=== PATIENT | female | born 1970 | race Caucasian/White ===

== ENCOUNTER → 2016-12-17 | Outpatient (CLI) | payer BC ==
--- NOTE | 2016-12-17 19:09 | DI ---
LEFT DIAGNOSTIC MAMMOGRAMS, 12/17/2016 1:18 PM: Clinical History: Breast cancer. Status post lumpectomy with radiation therapy. Prior Exam: 05/16/2014; 05/29/2015; left diagnostic mammogram 06/07/2015, left diagnostic mammogram 2015; 11/29/2015, and a left diagnostic mammogram 06/03/2016.. Digital breast imaging of the left breast is performed. Routine views and a true mediolateral project ion with magnification spot films are obtained in all three projections. Breast tissue density is rated as having scattered areas of fibroglandular breast tissue. There is po stsurgical scarring just deep to the nipple in the upper-outer quadrant near the 1:00 to 2:00 positio n. There is no mass in the left breast. No abnormal calcifications are noted. There is indentation of the skin at the surgical site at the skin contour is otherwise normal. Slight thickening of the trinh st skin tissue is present secondary to radiation therapy. The nipple is normal. Follow Up: A followup study is recommended in June when the patient will be due for her routine screening mammogram study. BIRADS Category: 2. Benign finding. Postsurgical scarring is noted anteriorly in the upper outer quad rant. No abnormal calcifications or masses are identified. Reading: Benign finding.
== END ==
LOC: MAMMO 13:15
PROVIDERS: ATTEND Physician Assistant
DX: D05.12 Intraductal carcinoma in situ of left breast (principal); Z92.3 Personal history of irradiation; Z98.890 Other specified postprocedural states
CPT/HCPCS: G0206

== ENCOUNTER → 2017-06-02 | Outpatient (CLI) | payer BC ==
--- NOTE | 2017-06-02 18:14 | DI ---
DIAGNOSTIC MAMMOGRAMS, 06/02/2017 12:46 PM: Clinical History: Status post left lumpectomy in June 2016 for DCIS. Family history of breast ca ncer in her maternal grandmother. Prior Exam: 05/16/2014; 05/29/2015; 05/29/2016. Routine digital breast imaging of both breasts is performed. A true mediolateral projection is also o btained. Breast tissue density is rated as having scattered areas of fibroglandular breast tissue. There is no evidence of recurrence of tumor in the left breast. No mass is seen in the right breast. There is a focus of architectural distortion in the left upper-outer quadrant anteriorly secondary to the surgic al biopsy. No abnormal calcifications are noted. Skin contour, nipples and lower axillary region on t he right side is normal. The lower axillary region the nipple on the left side are normal but the ski n is indented anteriorly secondary to the previous surgery. Follow Up: One year. BIRADS Category: 2. Benign finding. Assessment: Benign finding.
== END ==
LOC: MAMMO 12:40
PROVIDERS: ATTEND Radiology Radiation Oncology
DX: D05.12 Intraductal carcinoma in situ of left breast (principal); Z80.3 Family history of malignant neoplasm of breast; Z98.890 Other specified postprocedural states
CPT/HCPCS: G0204